=== PATIENT | female | born 1985 | race African-American/Black ===

== ENCOUNTER 2024-07-17 09:10 | Emergency (ER) | payer OTHER, SELFPAY ==
--- NOTE | ~2024-07-17 | CT_ITS ---
EXAMINATION: CTA chest PE protocol DATE: 07/17/2024 13:18 INDICATION: Left chest pain. TECHNIQUE: Computed tomography angiography (CTA) of the chest was performed with 100 mL Omnipaque-350 intravenous contrast timed to evaluate the pulmonary arteries. Coronal maximum intensity projection 3D-reconstructions were created by the technologist. Automated exposure control and iterative reconst ruction technique were employed. The dose-length product was 393.15 mGy-cm. COMPARISON: Chest CT 06/21/2007 FINDINGS: There is no pneumonia or pleural effusion. The heart size is normal. No pericardial effusio n. There is no pulmonary embolus. There is mild thoracic spondylosis. IMPRESSION: 1. No pulmonary embolus. Reviewed, dictated and finalized at location A. ANET SPECIALIST IMPRESSION: 1. No pulmonary embolus.
--- NOTE | ~2024-07-17 | XR_ITS ---
EXAMINATION: XR chest 2V DATE: 07/17/2024 10:19 INDICATION: Chest pain. TECHNIQUE: Frontal and lateral views of the chest were obtained. COMPARISON: Chest 2 views 02/20/2012 FINDINGS: There is no pneumonia, pleural effusion, or pneumothorax. The heart size is normal. IMPRESSION: 1. No acute cardiopulmonary disease. Reviewed, dictated and finalized at location A. IPLE KNIFE EDGE TRIMMER OPERATOR
--- NOTE | 2024-07-17 09:13 | ECG_ITS ---
Test Date: 2024-07-17 09:15:58 Measurements Intervals [place] Rate: 63 P: 35 [place]: 99 QRS: 69 QRSD: 97 T: 49 QT: 405 QTc: 417 Interpretive Statements SINUS RHYTHM WITH SHORT [place] INTERVAL BASELINE ARTIFACT- I, II, III, AVR, AVL, AVF, V1, V5-V6 BORDERLINE ECG No previous ECG available for comparison Electronically Signed On 07-17-2024 09:44:05 SOFT WORK WRAPPER LAYER AND EXAMINER by Vivek Saavedra D.O.
[2024-07-17 09:17] VITALS: PULSE 90; RESP 14; TEMP 36.5; O2SAT 98
[2024-07-17 09:32] LABS: Basophils Percent Auto 0.6 % (0.2-1.2); Eosinophils Percent Auto 0.8 % (0-4.4); Hemoglobin 12.4 g/dL (12.0-15.0); Immature Granulocyte Absolute 0.01 K/mm3 (0.00-0.031); Immature Granulocyte Percent A 0.3 % (0-0.5); Lymphocytes Absolute Auto 1.45 K/mm3 (0.9-3.2); Lymphocytes Percent Auto 40.6 % (18.3-44.2); Mean Corpuscular HGB Conc 32.6 g/dl (32-36); Mean Corpuscular Hemoglobin 30.3 pg (26-34); Mean Corpuscular Volume 92.9 fl (80-100); Mean Platelet Volume 11.1 fl (7.4-10.4); Monocytes Absolute Auto 0.2 K/mm3 (0.1-0.6); Monocytes Percent Auto 6.4 % (2.6-8.5); Neutrophils Absolute Auto 1.8 K/mm3 (1.3-6.7); Neutrophils Percent Auto 51.3 % (45.5-73.1); Platelet Count Result 193 k/mm3 (150-375); Red Blood Count 4.09 M/mm3 (4.2-5.4); White Blood Count 3.6 K/mm3 (4.5-10.0)
--- OUTSIDE RECORDS SUMMARY | 2024-07-17 09:35 | XMS_ITS | Clinical Summary ---
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 Surgical History Surgery Date Site/Laterality Comments EYE SURGERY REDUCTION MAMMAPLASTY TONSILLECTOMY TUBAL LIGATION 06/10/2013 - 06/09/2014 Family History Medical History Relation Name Comments Leukemia Father Cervical cancer Maternal Grandmother Endometriosis Mother Breast cancer Neg Hx Ovarian cancer Neg Hx Relation Name Status Comments Father Maternal Grandmother Alive Mother Alive Social History Tobacco Use Types Packs/Day Years Used Date Smoking Tobacco: Never Smokeless Tobacco: Never Alcohol Use Standard Drinks/Week Comments Yes 0 (1 standard drink = 0.6 oz pur e alcohol) socially Personal Safety Answer Date Recorded Getting School Help Needed Not on file 08/23 Comments No Sex and Gender Information Value Date Recorded Sex Assigned at Not on file Legal Sex Female 8:10 AM OPHTHALMIC PATHOLOGIST Gender Identity Not on file Sexual Orientation Not on file Obstetrics History Last Filed Vital Signs Vital Sign Reading Time Taken Comments Blood Pressure 127/89 10/27/2019 2:30 PM CDT Pulse 57 10/27/2019 2:30 PM CDT Temperature 36.7 C (98 F) 10/27/2019 2:30 PM CDT Respiratory Rate - - Oxygen Saturation 97% 10/27/2019 2:30 PM CDT Inhaled Oxygen Concentration - - Weight 88.5 kg (195 lb) 11/11/2019 10:30 AM CDT Height 175.3 cm (5' 9 ) 10/27/2019 2:30 PM CDT Body Mass Index 28.8 10/27/2019 2:30 PM CDT Plan of Treatment Not on file Insurance [employer] [facility] Care Teams Hydraulic Boom Operator Relationship Specialty Start Date End Date Joshua Iqbal MD [address] [place] [address] PCP - General Family Practice 08/19/19
--- OUTSIDE RECORDS SUMMARY | 2024-07-17 09:35 | XMS_ITS | Clinical Summary ---
Author Organization [facility] Address [address] [place] [address] Care Team Providers Care Mill Work Name Role Phone Unavailable Primary Care Provider Unavailabl e Source Comments [facility],non-owned Affiliates and Associated Physician Practices is amultiple site organization consisting of ambulatory clinics and hospital sitesin [place], [place], [place] and [place]. This disclosure is being madepursuant to the Care Everywhere program and may not contain all information available regarding this patient. Last updated 18.[facility] Social History Tobacco Use Types Packs/Day Years Used Date Smoking Tobacco: Never Assessed Sex and Gender Information Value Date Recorded Sex Assigned at Not on file Gender Identity Not on file Sexual Orientation Not on file Plan of Treatment Health Maintenance Due Date Last Done Comments PAP SMEAR 1985 HIV SCREENING 2000 HEPATITIS C SCREENING 05/06/2003 DTAP/TDAP/TD VACCINES (1 - Tdap) 2004 HEPATITIS B VACCINE (1 of 3 - 19+ 3-dose series) 2004 COVID-19 VACCINE ( - 2023-2 5 season) 2024 INFLUENZA VACCINE (#1) 2024 DEPRESSION SCREENING 06/10/2024 ZOSTER VACCINE (1 of 2) 2035 HIB VACCINE Aged Out No longer eligi ble based on patient's age to complete this topic HPV VACCINE Aged Out No longer eligi ble based on patient's age to complete this topic MENINGOCOCCAL (Group B) VACCINE Aged Out No longer eligible based on patient's age to complete this topic MENINGOCOCCAL VACCINE Aged Out No jossy michael eligible based on patient's age to complete this topic PNEUMOCOCCAL VACCINE Aged Out No long er eligible based on patient's age to complete this topic
--- OUTSIDE RECORDS SUMMARY | 2024-07-17 09:35 | XMS_ITS | Clinical Summary ---
Author Organization [facility] Address [address] [place] [address] Phone Care Team Providers Care Medical Esthetician Name Role Phone Unavailable Primary Care Provider Unavailabl e Allergies No known active allergies Medications buPROPion (WELLBUTRIN) 75 mg tablet Take 1 Tablet by mouth daily. 04/21/2024 Active tranexamic acid (LYSTEDA) 650 mg Tablet tabletIndicatio ns:Menorrhagia with regular cycle Take 2 Tablets (1,300 mg) by mouth 3 times daily. 30 Tablet 2 07/03/2024 Active Active Problems No known active problems Encounters Date Type Department Care Team Description 07/03/2024 2:30 PM STONEWORK SUPERVISOR Office Visit [facility]ING[facility] [address] [place] [id number] Meng Tran, Menorrhagia with regular cycle (Primary Dx); Intramural leiomyoma of uterus 07/03/2024 10:30 AM STONEWORK SUPERVISOR Ancillary Procedure [facility] SINGER SONGWRITER - [address] [address] Menorrhagia with regular cycle 07/02/2024 External Device Data STL ABSTRACTION Provider, Abstract 07/01/2024 External Device Data STL ABSTRACTION Provider, Abstract 06/30/2024 External Device Data STL ABSTRACTION Provider, Abstract 06/24/2024 External Device Data STL ABSTRACTION Provider, Abstract 06/23/2024 External Device Data STL ABSTRACTION Provider, Abstract 06/18/2024 1:30 PM STONEWORK SUPERVISOR Office Visit [facility] [address] [place] [address] Meng Tran DO Well woman exam with routine gynecological exam (Primary Dx); Screening for STDs (sexually transmitted diseases); Menorrhagia with regular cycle 06/18/2024 Telephone [facility] SINGER SONGWRITER - [address] [address] Meng Tran DO Appointment Notification from Last 3 Months Family History Medical History Relation Name Comments Colon Cancer Maternal Grandmother Endometrial Cancer Maternal Grandmother Relation Name Status Comments Maternal Grandmother Social History Tobacco Use Types Packs/Day Years Used Date Smoking Tobacco: Never Smokeless Tobacco: Never Alcohol Use Standard Drinks/Week Comments Yes 1 (1 standard drink = 0.6 oz pur e alcohol) Comments No Sex and Gender Information Value Date Recorded Sex Assigned at Not on file Legal Sex Female 3:02 PM CDT Gender Identity Not on file Sexual Orientation Not on file Last Filed Vital Signs Vital Sign Reading Time Taken Comments Blood Pressure 106/72 07/03/2024 10:42 AM STONEWORK SUPERVISOR Pulse 67 08/04/2021 8:00 AM STONEWORK SUPERVISOR Temperature 36.7 C (98 F) 08/04/2021 8:00 AM STONEWORK SUPERVISOR Respiratory Rate 15 07/03/2024 10:42 AM STONEWORK SUPERVISOR Oxygen Saturation 99% 07/03/2024 10:42 AM STONEWORK SUPERVISOR Inhaled Oxygen Concentration - - Weight 88 kg (194 lb) 07/03/2024 10:42 AM STONEWORK SUPERVISOR Height 175.3 cm (5' 9 ) 07/03/2024 10:42 AM STONEWORK SUPERVISOR Body Mass Index 28.65 07/03/2024 10:42 AM STONEWORK SUPERVISOR Plan of Treatment Upcoming Encounters Date Type Department Care Team (Late st Contact Info) Description 06/24/2025 1:30 PM STONEWORK SUPERVISOR Office Visit [facility] [address] [place] [address] Meng Tran DO [address] [place] [address] Health Maintenance Due Date Last Done Comments Pre-Diabetes and Diabetes Screening 1985 DTAP/TDAP/TD VACCINES (1 - Tdap) 2004 HEPATITIS B VACCINES (1 of 3 - 19+ 3-dose series) 2004 INFLUENZA VACCINE (#1) 2024 CERVICAL CANCER SCREENING 06/18/2027 06/18/2024 HPV VACCINES Aged Out No longer eligi ble based on patient's age to complete this topic Medical Devices Implanted Type Area Onsite Case Manager Device Identifier Shelf Expiration Date Model / Serial / Lot Field Software Engineer Clip Surgiclip Lb 13in [id number] - [id number] Implanted:Qty : 4 on 08/03/2021 by Alena Benjamin MD at [facility] N/A: Abdomen [employer] - COVIDIEN [id number] 04/09/2026 [id number] / / [id number] Procedures Procedure Name Priority Date/Time Associated Diagnosis Comments HIV DETECTION W/REFLX CONFIRMATION Routine 06/18/2024 2:44 PM STONEWORK SUPERVISOR Well woman exam with routine gynecological exam Screening for STDs (sexually transmitted diseases) RPR Routine 06/18/2024 2:44 PM STONEWORK SUPERVISOR Well woman exam with routine gynecological exam Screening for STDs (sexually transmitted diseases) CERV/VAG CYTO AGE BASED SCREEN PAP W CT/NG, TRICH Routine 06/18/2024 2:44 PM STONEWORK SUPERVISOR Well woman exam with routine gynecological exam from Last 3 Months Results * CERV/VAG CYTO AGE BASED SCREEN PAP W CT/NG, TRICH (06/18/2024 2:44 PM STONEWORK SUPERVISOR) COMMENT (PAP): [facility] [place] Comment: This order for age-based cervical cancer and STI screening follows ACOG guidelines(PB 168, 140, QJI592). See individual assays for performing site location. CLINICAL INFORMATION [facility] [place] Comment:SCREENING LAST MENSTRUAL PERIOD [facility] [place] Comment:06/02/2024 PREV PAP: [facility] [place] Comment:NONE GIVEN PREV BX: [facility] [place] Comment:NONE GIVEN SOURCE [facility] [place] Comment:Endocervix ADEQUACY: [facility] [place] Comment: Satisfactory for evaluation. Endocervical/transformation zone component present. PAP INTERP [facility] [place] Comment: Cytology Results: Negative for intraepithelial lesion or malignancy. CYTOLOGY INFECTION [facility] [place] Comment: Fungal organisms morphologically consistent with Tracey spp. COMMENT (PAP TEST) [facility] [place] Comment: This Pap test has been evaluated with computer assisted technology. GUEST SERVICES OFFICER: [facility] [place] Comment: TANIA, CT(ASCP) CT screening location: [place] [address] [place] [address] EXPLANATORY NOTE Que [facility] [place] Comment: EXPLANATORY NOTE: The Pap is a screening test for cervical cancer. It is not a diagnostic test and is subject to false negative and false positive results. It is most reliable when a satisfactory sample, regularly obtained, is submitted with relevant clinical findings and history, and when the Pap result is evaluated along with historic and current clinical information. HPV E6/E7 Not Detected Not Detected [facility] [place] Comment: Methodology: Dental Assistant Medical Assistant-Mediated Amplification This assay detects E6/E7 viral messenger RNA (mRNA) from 14 high-risk HPV types (16,18,31,33,35,39,45,51,52,56,58,59,66,68). Cervical sources are required for HPV testing. If a vaginal source from a patient who has had a total hysterectomy with removal of cervix was submitted, please contact the testing laboratory for alternative testing options. For additional information, please refer to http://[employer].PrecisionHawk/faq/KVJ058i5 (This link if provided for information/ educational purposes only.) CHLAMYDIA TRACHOMATIS RNA, TMA, UROGENITAL NOT DETECTED NOT DETECTED [facility] [place] NEISSERIA GONORRHOEAE RNA, TMA, UROGENITAL NOT DETECTED NOT DETECTED [facility] [place] COMMENT INFECTIOUS DISEASE [facility] [place] Comment: The analytical performance characteristics of this assay, when used to test SurePath(TM) specimens have been determined by [facility]. The modifications have not been cleared or approved by the FDA. This assay has been validated pursuant to the CLIA regulations and is used for clinical purposes. For additional information, please refer to https://[employer].PrecisionHawk/faq/TFE297 (This link is being provided for information/ educational purposes only.) TRICHOMONAS VAGINALIS,QUALITAT DELGADO,PAP VIAL NOT DETECTED NOT DETECTED [facility] [place] Comment: The analytical performance characteristics of this assay have been determined by [facility]. The modifications have not been cleared or approved by the FDA. This assay has been validated pursuant to the CLIA regulations and is used for clinical purposes. For additional information, please refer to http://education.PrecisionHawk/ faq/Trichomonastma (This link is being provided for information/ educational purposes only.) Test Performed at: [facility] [address] [place] [address] Gayatri CASTANO Genital SWAB OF ENDOCERVIX / Unknown 06/18/2024 2:44 PM STONEWORK SUPERVISOR 06/19/2024 3:26 AM STONEWORK SUPERVISOR Meng Tran DO PATHOLOGY/CYTOLOGY ORD ERABLES Final Result [facility] [phone] [facility] [address] * HIV DETECTION W/REFLX CONFIRMATION (06/18/2024 2:44 PM STONEWORK SUPERVISOR) HIV-1/2 AG AND AB SCREEN NON-REACT DELGADO NON-REACT DELGADO [facility] [place] Comment: HIV-1 antigen and HIV-1/HIV-2 antibodies were not detected. There is no laboratory evidence of HIV infection. PLEASE NOTE: This information has been disclosed to you from records whose confidentiality may be protected by state law. If your state requires such protection, then the state law prohibits you from making any further disclosure of the information without the specific written consent of the person to whom it pertains, or as otherwise permitted by law. A general authorization for the release of medical or other information is NOT sufficient for this purpose. For additional information please refer to http://education.PrecisionHawk/faq/PSL534 (This link is being provided for informational/ educational purposes only.) The performance of this assay has not been clinically validated in patients less than 2 years old. Test Performed at: [facility] [address] [place] [address] Gayatri Weller MD Blood 06/18/2024 2:44 PM STONEWORK SUPERVISOR 06/19/2024 7:41 AM STONEWORK SUPERVISOR Meng Tran DO CHEMISTRY ORDERABLES F inal Result Performing Organization Address [facility] Co de Phone Number [facility] [phone] [facility] [address] * RPR (06/18/2024 2:44 PM STONEWORK SUPERVISOR) RPR NON-REACTI VE NON-REACTI VE [facility] Comment: No laboratory evidence of syphilis. If recent exposure is suspected, submit a new sample in 2-4 weeks. Test Performed at: [facility] [address] Gayatri Weller MD Blood 06/18/2024 2:44 PM STONEWORK SUPERVISOR 06/19/2024 7:41 AM STONEWORK SUPERVISOR Meng Gallegoty DO CHEMISTRY ORDERABLES F inal Result Performing Organization Address [facility] de Phone Number [facility] [phone] [facility] [address] from Last 3 Months Insurance [employer] [place] [facility] [place]ENA [place]ER [id number] Advance Directives For more information, please contact: [phone] * Full Code (Latest Code Status on File) Date Activated Date Inactivated Comments 08/03/2021 2:30 PM 08/04/2021 1:01 PM
--- OUTSIDE RECORDS SUMMARY | 2024-07-17 09:35 | XMS_ITS | Patient Health Summary ---
Author Organization [facility] Address [address] [facility] [place] [address] Care Team Providers Care Engineering Mechanic Name Role Phone Unavailable Primary Care Provider Unavailabl e Note from [facility],non-owned Affiliates and Associated Physician Practices is amultiple site organization consisting of ambulatory clinics and hospital sitesin [place], [place], [place] and [place]. This disclosure is being madepursuant to the Care Everywhere program and may not contain all information available regarding this patient. Last updated 18.[facility] [email or web address] Social History Tobacco Use Types Packs/Day Years Used Date Smoking Tobacco: Never Assessed Sex and Gender Information Value Date Recorded Sex Assigned at Not on file Gender Identity Not on file Sexual Orientation Not on file Procedures * LUNG MATURITY(Performed 06/23/2010) * LS RATIO AMNIOTIC FLUID(Performed 06/23/2010) Results * LS RATIO FLUID (06/23/2010 7:45 AM CUT OUT AND MARKING MACHINE OPERATOR) L/S Ratio 3.0 SEE BELOW [facility] Comment: Immature <=1.5 Transitional 1.6-1.9 Mature >=2.0 Color Fluid Pale Yellow [facility] Character Amnio turbid [facility] Gestational Age 37w4d [facility] Volume Amnio 9.0 ml [facility] Interpretation L/S Ratio [facility] Comment: PLEASE NOTE - L/S Ratio correlates with gestational age only in normal pregnancies. Abnormalities of , such as Retroplacental Bleeding and Ruptured Membranes, Hypertensive Renal or Cardiovascular Disease, Class D, E, and F Diabetes, and Maternal Hypertension can accelerate L/S Ratio maturation. Conversely, delayed maturation of L/S Ratio can be caused by Erythroblastosis Fetalis, Diabetes Mellitus (Class A, B, or C), and Chronic Nonhypertensive Glomerulonephritis. AMNIOTIC FLUID SPECIMEN / Unknown 06/23/2010 7:45 AM CUT OUT AND MARKING MACHINE OPERATOR 06/23/2010 10:18 AM CUT OUT AND MARKING MACHINE OPERATOR Narrative [facility] - 06/23/2010 2:28 PM CUT OUT AND MARKING MACHINE OPERATOR tt Airam Caba MD LAB - BODY FLUID ORD ERABLES Performing Organization Address [facility] de Phone Number [facility] [address] [place] [phone] * LUNG MATURITY (06/23/2010 7:45 AM CUT OUT AND MARKING MACHINE OPERATOR) FLM 35.63 SEE BELOW mg/g [facility] Comment: See Interpretation for Normals Color Fluid Pale Yellow [facility] Character Amnio turbid [facility] Gestational Age 37w4d [facility] Volume Amnio 9.0 ml [facility] Interpretation [facility] Comment: FLM Immature ......... <= 39 mg/g Mature ......... >= 55 mg/g Results between 40 and 54 cannot be declared mature or immature and should be evaluated with caution. AMNIOTIC FLUID SPECIMEN / Unknown 06/23/2010 7:45 AM CUT OUT AND MARKING MACHINE OPERATOR 06/23/2010 10:18 AM CUT OUT AND MARKING MACHINE OPERATOR Narrative [facility] - 06/23/2010 2:27 PM CUT OUT AND MARKING MACHINE OPERATOR tt Airam Caba MD LAB - BODY FLUID ORD ERABLES Performing Organization Address [facility] Co de Phone Number [facility] [address] [place] [phone]
--- OUTSIDE RECORDS SUMMARY | 2024-07-17 09:35 | XMS_ITS | Referral Summary ---
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
--- OUTSIDE RECORDS SUMMARY | 2024-07-17 09:35 | XMS_ITS | Referral Summary ---
Author Organization [facility] Address [address] [facility] [place] [address] Care Team Providers Care Java Engineer Name Role Phone Unavailable Primary Care Provider Unavailabl e Source Comments [facility],non-owned Affiliates and Associated Physician Practices is amultiple site organization consisting of ambulatory clinics and hospital sitesin [place], [place]. This disclosure is being madepursuant to the Care Everywhere program and may not contain all information available regarding this patient. Last updated 18.[facility] Social History Tobacco Use Types Packs/Day Years Used Date Smoking Tobacco: Never Assessed Sex and Gender Information Value Date Recorded Sex Assigned at Not on file Gender Identity Not on file Sexual Orientation Not on file Plan of Treatment Not on file
--- OUTSIDE RECORDS SUMMARY | 2024-07-17 09:35 | XMS_ITS | Clinical Summary ---
Author Organization [facility] Care Team Providers Care Cement [employer] [address] Name Role Phone Unavailable Primary Care Provider Unavailabl e Social History Tobacco Use Types Packs/Day Years Used Date Smoking Tobacco: Never Assessed Comments Unknown Sex and Gender Information Value Date Recorded Sex Assigned at Not on file Legal Sex Female 4:03 PM CDT Gender Identity Not on file Sexual Orientation Not on file Plan of Treatment Health Maintenance Due Date Last Done Comments Hepatitis C Virus (HCV) Screening 1985 TdaP Immunization 1985 Hepatitis B Immunization (1 of 3 - 19+ 3-dose series) 2004 Pap Smear 2006 Cervical Cancer Screening (CCS) 2015 HPV/Cotest 2015 Influenza Immunization (#1) 2024 SARS-COV-2 Immunization ( season) 2024 09/29/2020, 09/08/2020 Respiratory Syncytial Virus (RSV) Immunization (Adult) (1 - 1-dose 75+ series) 2060 Meningococcal Immunization (ACWY) Aged Out No longer eligible b ased on patient's age to complete this topic Pneumococcal Immunization Combined Aged Out No longer eligible b ased on patient's age to complete this topic Rotavirus Immunization Aged Out No lo nger eligible based on patient's age to complete this topic
[2024-07-17 09:44] LABS: Alanine Aminotransferase 17 U/L (6-35); Albumin Level 4.3 g/dL (3.5-5.1); Alkaline Phosphatase 58 U/L (38-126); Anion Gap 11 mmol/L (4-12); Aspartate Amino Transferase 25 U/L (14-36); Bilirubin,Total 0.4 mg/dL (0.2-1.3); Blood Urea Nitrogen 10 mg/dL (7-17); Calcium 8.9 mg/dL (8.4-10.2); Carbon Dioxide 21 mmol/L (22-30); Chloride 106 mmol/L (98-107); Estimated CRCL calculation 113 ml/min; Estimated Glomerular Filt Rate > 60; Glucose 78 mg/dL (65-110); Lipase 97 U/L (23-300); Sodium 138 mmol/L (137-145)
[2024-07-17 09:56] LABS: Troponin I < 0.012 ng/mL (0.000-0.034)
[2024-07-17 10:21] LABS: Prothrombin Time 13.9 Seconds (11.1-14.7)
[2024-07-17 10:22] LABS: Partial Thromboplastin Time 29.5 Seconds (22.3-36.8)
--- NOTE | 2024-07-17 11:46 | ED.GENADULT ---
HPI - General Adult General Chief complaint: Chest Pain Stated complaint: chest pain Time Seen by Provider: 07/17/24 11:05 History of Present Illness HPI narrative: 39-year-old female presenting to the emergency department for evaluation for left-sided chest pain. Patient denies any recent upper respiratory illness with states her children do have some signs of infection. Patient began having some left-sided chest pain that is worsened with deep inspiration. States the pain has been constant since last night but is worsened with deep breathing movement and cough. Patient is on control. Related Data Home Medications ?Medication ?Instructions ?Recorded ?Confirmed ?Last Taken ?Type multivitamin 1 tablet PO DAILY 05/30/20 04/21/24 Unknown History Allergies Allergy/AdvReac Type Severity Reaction Status Date / Time No Known Allergies Allergy Unknown Verified 07/17/24 12:15 Review of Systems Review of Systems: All systems reviewed & are unremarkable except as noted in HPI and below PMFSH Past Medical History Medical History Depression Detached retina, bilateral Glaucoma Vision loss, bilateral Surgical History Surgical History History of endometrial ablation History of removal of eye Right Family History Family History Grandparent Diabetes mellitus Family history of lung cancer Father Family history of malignant neoplasm Social History Social History Smoking status: Never smoker Alcohol intake: current Substance use: never Substance use type: does not use Lack of Transportation: No Lack of Food: Never True Current Housing: I Have Housing Concerned About Future Housing: No Difficulty Paying Gas/Electric Bills: YES Difficulty Paying for Meds: No Currently Unemployed: No Education: Bachelor's Degree Difficulty w/ Childcare or Family Care: No Living arrangements: with family Occupation/Education: unemployed Additional occupation/education comments: Disabled Gender identity (if verbalized by the patient): Female Sexual Orientation (if Verbalized by the Patient): Straight or Heterosexual Agree to blood products: Yes Exam Narrative: APPEARANCE: Well appearing, no pain, no distress, well-nourished. HEAD: normocephalic, atraumatic. EYES: PERRLA/EOMI, conjunctivae clear. NOSE: Normal no drainage EARS:TMS clear with good light reflex. THROAT: Pharynx clear, no exudate. NECK: Supple. No adenopathy, no masses. RESPIRATORY: Airway patent, respirations nonlabored. Clear to auscultation bilaterally, no rales, rhonchi, wheezing. CARDIOVASCULAR: Regular rate and rhythm without murmurs rubs or gallops. ABDOMINAL: Soft, nontender, nondistended, normal bowel sounds MUSCULOSKELETAL: Left-sided chest wall tenderness to palpation NEURO: Alert. Cranial nerves II through XII intact. Grossly intact SKIN: Warm, dry. Normal Color Course Vital Signs Vital signs: Vital Signs Temperature 97.7 F 07/17/24 09:17 Pulse Rate 90 07/17/24 09:17 Respiratory Rate 14 07/17/24 09:17 Pulse Oximetry 98 07/17/24 09:17 Oxygen Delivery Room Air 07/17/24 09:17 Temperature 97.8 F 07/17/24 14:45 Pulse Rate 62 07/17/24 14:45 Respiratory Rate 14 07/17/24 14:45 Blood Pressure 107/73 07/17/24 14:45 Pulse Oximetry 100 07/17/24 14:45 Oxygen Delivery Room Air 07/17/24 12:10 Medical Decision Making MDM Narrative Medical decision making narrative: 39-year-old female presented emergency department for evaluation for reproducible left-sided chest wall tenderness. Patient is afebrile with no leukocytosis hemoglobin of 12.4. Patient's INR is 1.0. Patient has no acute abnormalities on her CMP. Serial troponins were negative and serial EKGs were negative. Patient was negative influenza RSV and for COVID. CTA was ordered to evaluate for pulmonary embolism and was negative for PE negative for pneumonia. EKG shows normal sinus rhythm and repeat shows sinus bradycardia with no evidence of acute STEMI with no T-wave inversions. Suspect pleurisy as the underlying etiology for the patient's symptoms. Patient was updated on the results of the workup and plan for treatment home. All questions concerns were addressed. Differential Diagnosis Differential Diagnosis: COVID, RSV, influenza, pneumonia, pulmonary embolism, pneumothorax Vital Signs Vital Signs: Vital Signs Temperature 97.7 F 07/17/24 09:17 Pulse Rate 90 07/17/24 09:17 Respiratory Rate 14 07/17/24 09:17 Pulse Oximetry 98 07/17/24 09:17 Oxygen Delivery Room Air 07/17/24 09:17 Temperature 97.8 F 07/17/24 14:45 Pulse Rate 62 07/17/24 14:45 Respiratory Rate 14 07/17/24 14:45 Blood Pressure 107/73 07/17/24 14:45 Pulse Oximetry 100 07/17/24 14:45 Oxygen Delivery Room Air 07/17/24 12:10 Lab Data Lab results reviewed: Yes I reviewed the patient's lab results. 07/17/24 09:26 07/17/24 09:26 Labs: Lab Results 07/17/24 07/17/24 Range/Units 09:26 12:07 WBC 3.6 L (4.5-10.0) K/mm3 RBC 4.09 L (4.2-5.4) M/mm3 Hgb 12.4 (12.0-15.0) g/dL Hct 38.0 (37.0-47.0) % MCV 92.9 (80-100) fl MCH 30.3 (26-34) pg MCHC 32.6 (32-36) g/dl RDW 13.0 (11.5-14.5) % Plt Count 193 (150-375) k/mm3 MPV 11.1 H (7.4-10.4) fl Immature Gran % (Auto) 0.3 (0-0.5) % Neut % (Auto) 51.3 (45.5-73.1) % Lymph % (Auto) 40.6 (18.3-44.2) % [place] % (Auto) 6.4 (2.6-8.5) % Eos % (Auto) 0.8 (0-4.4) % Baso % (Auto) 0.6 (0.2-1.2) % Lymph # (Auto) 1.45 (0.9-3.2) K/mm3 [place] # (Auto) 0.2 (0.1-0.6) K/mm3 Eos # (Auto) 0.0 (0-0.3) K/mm3 Baso # (Auto) 0.0 (0.0-0.1) K/mm3 Abs Immat Gran (auto) 0.01 (0.00-0.031) K/mm3 Absolute Neuts (auto) 1.8 (1.3-6.7) K/mm3 Absolute Nucleated RBC 0.000 (0.0-0.012) K/mm3 Nucleated RBC % 0.0 (0.0-0.2) % PT 13.9 (11.1-14.7) Seconds INR 1.0 APTT 29.5 (22.3-36.8) Seconds Sodium 138 (137-145) mmol/L Potassium 4.0 (3.4-5.0) mmol/L Chloride 106 (98-107) mmol/L Carbon Dioxide 21 L (22-30) mmol/L Anion Gap 11 (4-12) mmol/L BUN 10 (7-17) mg/dL Creatinine 0.67 L (0.7-1.0) mg/dL Estim Creat Clear Calc 113 ml/min Estimated GFR > 60 (59 - ) Glucose 78 (65-110) mg/dL Calcium 8.9 (8.4-10.2) mg/dL Total Bilirubin 0.4 (0.2-1.3) mg/dL AST 25 (14-36) U/L ALT 17 (6-35) U/L Alkaline Phosphatase 58 (38-126) U/L Troponin I < 0.012 < 0.012 (0.000-0.034) ng/mL Total Protein 7.0 (6.3-8.2) g/dL Albumin 4.3 (3.5-5.1) g/dL Lipase 97 (23-300) U/L Influenza A (RT-PCR) Negative (Negative) Influenza B (RT-PCR) Negative (Negative) RSV (RT-PCR) Negative (Negative) SARS-CoV-2 RNA (RT-PCR) Negative (Negative) Imaging Data Radiologist's impression: Impressions Chest X-Ray 07/17/24 10:44 IMPRESSION: 1. No acute cardiopulmonary disease. Chest CTA 07/17/24 13:22 IMPRESSION: 1. No pulmonary embolus. Discharge Plan Discharge Clinical Impression: Left-sided chest pain Patient Disposition: Home, Self-Care Condition: Stable Instructions: Antibiotic Form, Pleurisy (ED), Chest Wall Pain (ED) Additional Instructions: Ibuprofen as directed for left-sided chest wall pain. Have close follow-up with your primary care physician for additional outpatient cardiac testing. If you have any worsening symptoms then please call or return to the emergency department. Patient Language: Hungarian Prescriptions: No Action bupropion HCl 75 mg tablet 75 mg PO DAILY Qty: 90 0RF Rx Instructions: administer 6 hours apart multivitamin Tablet 1 tablet PO DAILY Follow-up/Referrals: Sayra Moya, [facility]ER [Primary Care Provider] -
--- NOTE | 2024-07-17 11:57 | ECG_ITS ---
Test Date: 2024-07-17 12:04:06 Measurements Intervals [place] Rate: 57 P: 24 NE: 126 QRS: 56 QRSD: 101 T: 31 QT: 422 QTc: 411 Interpretive Statements SINUS BRADYCARDIA BORDERLINE ECG Compared to ECG 07/17/2024 09:15:58 HEART RATE HAS DECREASED Electronically Signed On 07-17-2024 12:50:07 MANUAL ARTS THERAPY TEACHER by Vivek Saavedra D.O.
--- OUTSIDE RECORDS SUMMARY | 2024-07-17 12:08 | XMS_ITS | Clinical Summary ---
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
--- OUTSIDE RECORDS SUMMARY | 2024-07-17 12:08 | XMS_ITS | Referral Summary ---
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
--- OUTSIDE RECORDS SUMMARY | 2024-07-17 12:08 | XMS_ITS | Clinical Summary ---
Author Organization [facility] Address [address] [place] [address] Care Team Providers Care Remote Encoding Operations Supervisor Name Role Phone Unavailable Primary Care Provider Unavailabl e Source Comments [facility],non-owned Affiliates and Associated Physician Practices is amultiple site organization consisting of ambulatory clinics and hospital sitesin [place], [place], [place] and [place]. This disclosure is being madepursuant to the Care Everywhere program and may not contain all information available regarding this patient. Last updated 18.[facility] Social History Tobacco Use Types Packs/Day Years [...]
--- OUTSIDE RECORDS SUMMARY | 2024-07-17 12:08 | XMS_ITS | Clinical Summary ---
Author Organization [facility] Address [address] [place] [address] Phone Care Team Providers Care Management Professor Name Role Phone Unavailable Primary Care Provider [...] Department Care Team Description 07/03/2024 2:30 PM VICE PRESIDENT QUALITY Office Visit [facility] [address] [place] [address] Meng Tran, Menorrhagia with regular cycle (Primary Dx); Intramural leiomyoma of uterus 07/03/2024 10:30 AM VICE PRESIDENT QUALITY Ancillary Procedure [facility] [address] [address] Menorrhagia with regular cycle 07/02/2024 External Device Data STL ABSTRACTION Provider, Abstract 07/01/2024 External Device Data STL ABSTRACTION Provider, Abstract 06/30/2024 External Device Data STL ABSTRACTION Provider, Abstract 06/24/2024 External Device Data STL ABSTRACTION Provider, Abstract 06/23/2024 External Device Data STL ABSTRACTION Provider, Abstract 06/18/2024 1:30 PM VICE PRESIDENT QUALITY Office Visit [facility] [address] [place] [address] Meng Tran DO Well woman exam with routine gynecological exam (Primary Dx); Screening for STDs (sexually transmitted diseases); Menorrhagia with regular cycle 06/18/2024 Telephone [facility] [address] [place] [address] Meng Tran DO Appointment Notification [...] Comments Blood Pressure 106/72 07/03/2024 10:42 AM VICE PRESIDENT QUALITY Pulse 67 08/04/2021 8:00 AM VICE PRESIDENT QUALITY Temperature 36.7 C (98 F) 08/04/2021 8:00 AM VICE PRESIDENT QUALITY Respiratory Rate 15 07/03/2024 10:42 AM VICE PRESIDENT QUALITY Oxygen Saturation 99% 07/03/2024 10:42 AM VICE PRESIDENT QUALITY Inhaled Oxygen Concentration - - Weight 88 kg (194 lb) 07/03/2024 10:42 AM VICE PRESIDENT QUALITY Height 175.3 cm (5' 9 ) 07/03/2024 10:42 AM VICE PRESIDENT QUALITY Body Mass Index 28.65 07/03/2024 10:42 AM VICE PRESIDENT QUALITY Plan of Treatment Upcoming Encounters Date Type Department Care Team (Late st Contact Info) Description 06/24/2025 1:30 PM VICE PRESIDENT QUALITY Office Visit [facility] [address] [place] [address] Meng Tran DO [address] [place] [address] Health Maintenance Due Date Last Done Comments Pre-Diabetes and Diabetes Screening 1985 DTAP/TDAP/TD VACCINES (1 - Tdap) 2004 HEPATITIS B VACCINES (1 of 3 - 19+ 3-dose series) 2004 INFLUENZA VACCINE (#1) 2024 CERVICAL CANCER SCREENING 06/18/2027 06/18/2024 HPV VACCINES Aged Out No longer eligi ble based on patient's age to complete this topic Medical Devices Implanted Type Area Administrative Fellow Device Identifier Shelf Expiration Date Model / Serial / Lot Banking Representative Clip Surgiclip Lb 13in [id number] - [id number] Implanted:Qty : 4 on 08/03/2021 by Alena Benjamin MD at [facility] N/A: Abdomen [employer] - COVIDIEN [id number] 04/09/2026 [id number] / / [id number] Procedures Procedure Name Priority Date/Time Associated Diagnosis Comments HIV DETECTION W/REFLX CONFIRMATION Routine 06/18/2024 2:44 PM VICE PRESIDENT QUALITY Well woman exam with routine gynecological exam Screening for STDs (sexually transmitted diseases) RPR Routine 06/18/2024 2:44 PM VICE PRESIDENT QUALITY Well woman exam with routine gynecological exam Screening for STDs (sexually transmitted diseases) CERV/VAG CYTO AGE BASED SCREEN PAP W CT/NG, TRICH Routine 06/18/2024 2:44 PM VICE PRESIDENT QUALITY Well woman exam with routine gynecological exam from Last 3 Months Results * CERV/VAG CYTO AGE BASED SCREEN PAP W CT/NG, TRICH (06/18/2024 2:44 PM VICE PRESIDENT QUALITY) COMMENT (PAP): [facility] [place] Comment: This order for age-based cervical cancer and STI screening follows ACOG guidelines(PB 168, 140, IWT578). See individual assays for performing site location. CLINICAL INFORMATION [facility] [place] Comment:SCREENING LAST MENSTRUAL PERIOD [facility] [place] Comment:06/02/2024 PREV PAP: [facility] [place] Comment:NONE GIVEN PREV BX: [facility] [place] Comment:NONE GIVEN SOURCE [facility] [place] Comment:Endocervix ADEQUACY: [facility] [place] Comment: Satisfactory for evaluation. Endocervical/transformation zone component present. PAP INTERP [facility]- [place] Comment: Cytology Results: Negative for intraepithelial lesion or malignancy. CYTOLOGY INFECTION [facility] [place] Comment: Fungal organisms morphologically consistent with Tracey spp. COMMENT (PAP TEST) [facility] [place] Comment: This Pap test has been evaluated with computer assisted technology. MEDICARE CONTACT SPECIALIST: Keturah [facility]- [place] Comment: TANIA, CT(ASCP) CT screening location: [place] [address] [place] [address] EXPLANATORY NOTE [facility]- [place] Comment: EXPLANATORY NOTE: The Pap is a [...] information. HPV E6/E7 Not Detected Not Detected [facility]- [place] Comment: Methodology: Insurance Claims Supervisor-Mediated Amplification This assay detects E6/E7 viral messenger RNA (mRNA) from 14 high-risk HPV types (16,18,31,33,35,39,45,51,52,56,58,59,66,68). Cervical sources are required for HPV testing. If a vaginal source from a patient who has had a total hysterectomy with removal of cervix was submitted, please contact the testing laboratory for alternative testing options. For additional information, please refer to http://BuzzFeed.Macaw/faq/HER440q9 (This link if provided for information/ educational purposes only.) CHLAMYDIA TRACHOMATIS RNA, TMA, UROGENITAL NOT DETECTED NOT DETECTED [facility] [place] NEISSERIA GONORRHOEAE RNA, TMA, UROGENITAL NOT DETECTED NOT DETECTED [facility] [place] COMMENT INFECTIOUS DISEASE [facility] [place] Comment: The analytical performance characteristics of this assay, when used to test SurePath(TM) specimens have been determined by [facility]. The modifications have not been cleared or approved by the FDA. This assay has been validated pursuant to the CLIA regulations and is used for clinical purposes. For additional information, please refer to https://BuzzFeed.Macaw/faq/ORC457 (This link is being provided for information/ educational purposes only.) TRICHOMONAS VAGINALIS,QUALITAT DELGADO,PAP VIAL NOT DETECTED NOT DETECTED [facility] [place] Comment: The analytical performance characteristics of this assay have been determined by [facility]. The modifications have not been cleared or approved by the FDA. This assay has been validated pursuant to the CLIA regulations and is used for clinical purposes. For additional information, please refer to http://education.Macaw/ faq/Trichomonastma (This link is being provided for information/ educational purposes only.) Test Performed at: [email or web address] [address] [place] [address] Gayatri CASTANO Genital SWAB OF ENDOCERVIX / Unknown 06/18/2024 2:44 PM VICE PRESIDENT QUALITY 06/19/2024 3:26 AM VICE PRESIDENT QUALITY Meng Tran DO PATHOLOGY/CYTOLOGY ORD ERABLES Final Result [facility] [phone] [address] * HIV DETECTION W/REFLX CONFIRMATION (06/18/2024 2:44 PM VICE PRESIDENT QUALITY) HIV-1/2 AG AND AB SCREEN NON-REACT DELGADO NON-REACT DELGADO [facility] [place] Comment: HIV-1 antigen and HIV-1/HIV-2 antibodies were [...] purpose. For additional information please refer to http://education.Macaw/faq/QBE417 (This link is being provided for informational/ educational purposes only.) The performance of this assay has not been clinically validated in patients less than 2 years old. Test Performed at: [facility] [address] [place] [address] Gayatri Weller MD Blood 06/18/2024 2:44 PM VICE PRESIDENT QUALITY 06/19/2024 7:41 AM VICE PRESIDENT QUALITY Meng Tran DO CHEMISTRY ORDERABLES F inal Result Performing Organization Address [facility] Co de Phone Number [facility] [phone] [address] * RPR (06/18/2024 2:44 PM VICE PRESIDENT QUALITY) RPR NON-REACTI VE NON-REACTI VE [facility] [place] Comment: No laboratory evidence of syphilis. If recent exposure is suspected, submit a new sample in 2-4 weeks. Test Performed at: [email or web address] [address] Gayatri Weller MD Blood 06/18/2024 2:44 PM VICE PRESIDENT QUALITY 06/19/2024 7:41 AM VICE PRESIDENT QUALITY Meng Gallegoty DO CHEMISTRY ORDERABLES F inal Result Performing Organization Address [facility] de Phone Number [facility] [phone] [address] from Last 3 Months Insurance [employer] OR OF [facility] MALENA KISER [id number] Advance Directives For more information, please contact: [phone] * Full Code (Latest Code Status on File) Date Activated Date Inactivated Comments 08/03/2021 2:30 PM 08/04/2021 1:01 PM
--- OUTSIDE RECORDS SUMMARY | 2024-07-17 12:08 | XMS_ITS | Clinical Summary ---
Author Organization [facility] Care Team Providers Care Hospice Superintendent Name Role Phone Unavailable Primary Care Provider [...]
--- OUTSIDE RECORDS SUMMARY | 2024-07-17 12:08 | XMS_ITS | Referral Summary ---
Author Organization [facility] Address [address] [place] [address] Care Team Providers Care Social Science Instructor Name Role Phone Unavailable Primary Care Provider Unavailabl e Source Comments [facility],non-owned Affiliates and Associated Physician Practices is amultiple site organization consisting of ambulatory clinics and hospital sitesin [place], [place], [place] and [place]. This disclosure is being madepursuant to the Care Everywhere program and may not contain all information available regarding this patient. Last updated 18.[facility] [employer] Social History Tobacco Use Types Packs/Day Years Used Date Smoking Tobacco: Never Assessed Sex and Gender Information Value Date Recorded Sex Assigned at Not on file Gender Identity Not on file Sexual Orientation Not on file Plan of Treatment Not on file
--- OUTSIDE RECORDS SUMMARY | 2024-07-17 12:08 | XMS_ITS | Patient Health Summary ---
Author Organization [facility] Address [address] [place] [address] Care Team Providers Care Instructor Flying Name Role Phone Unavailable Primary Care Provider Unavailabl e Note from [facility],non-owned Affiliates and Associated Physician Practices is amultiple site organization consisting of ambulatory clinics and hospital sitesin [place], [place], [place] and [place]. This disclosure is being madepursuant to the Care Everywhere program and may not contain all information available regarding this patient. Last updated 18.[facility] [employer] Social History Tobacco Use Types Packs/Day Years Used Date Smoking Tobacco: Never Assessed Sex and Gender Information Value Date Recorded Sex Assigned at Not on file Gender Identity Not on file Sexual Orientation Not on file Procedures * LUNG MATURITY(Performed 06/23/2010) * LS RATIO AMNIOTIC FLUID(Performed 06/23/2010) Results * LS RATIO FLUID (06/23/2010 7:45 AM GIMP BUTTONHOLE MACHINE OPERATOR) L/S Ratio 3.0 SEE BELOW [facility] Comment: Immature <=1.5 Transitional 1.6-1.9 Mature >=2.0 Color Fluid Pale Yellow [facility] Character Amnio turbid [facility] Gestational Age 37w4d [facility] Volume Amnio 9.0 ml [facility] Interpretation L/S Ratio [facility] Comment: PLEASE NOTE - L/S Ratio [...] FLUID SPECIMEN / Unknown 06/23/2010 7:45 AM GIMP BUTTONHOLE MACHINE OPERATOR 06/23/2010 10:18 AM GIMP BUTTONHOLE MACHINE OPERATOR Narrative [facility] - 06/23/2010 2:28 PM GIMP BUTTONHOLE MACHINE OPERATOR tt Airam Caba MD LAB - BODY FLUID ORD ERABLES Performing Organization Address [facility] de Phone Number [facility] [address] [place] [phone] * LUNG MATURITY (06/23/2010 7:45 AM GIMP BUTTONHOLE MACHINE OPERATOR) FLM 35.63 SEE BELOW mg/g [facility] Comment: See Interpretation for Normals Color Fluid Pale Yellow [facility] Character Amnio turbid [facility] Gestational Age 37w4d [facility] Volume Amnio 9.0 ml [facility] Interpretation [facility] Comment: FLM Immature ......... <= 39 mg/g Mature ......... >= 55 mg/g Results between 40 and 54 cannot be declared mature or immature and should be evaluated with caution. AMNIOTIC FLUID SPECIMEN / Unknown 06/23/2010 7:45 AM GIMP BUTTONHOLE MACHINE OPERATOR 06/23/2010 10:18 AM GIMP BUTTONHOLE MACHINE OPERATOR Narrative [facility] - 06/23/2010 2:27 PM GIMP BUTTONHOLE MACHINE OPERATOR tt Airam Caba MD LAB - BODY FLUID ORD ERABLES Performing Organization Address [facility] Co de Phone Number [facility] [address] [place] [phone]
[2024-07-17 12:10] VITALS: BP 106/68; PULSE 63; RESP 11; TEMP 36.4; O2SAT 100; O2SAT 98
[2024-07-17 12:39] LABS: Troponin I < 0.012 ng/mL (0.000-0.034)
[2024-07-17 12:57] LABS: Influenza A QL RT-PCR Negative (Negative); Influenza B QL RT-PCR Negative (Negative); RSV RNA, RT-PCR Negative (Negative); SARS-CoV-2 RNA PCR Negative (Negative)
[2024-07-17 13:57] VITALS: BP 113/67; PULSE 73; RESP 14; O2SAT 100
[2024-07-17] MEDS: KETOROLAC 30 MG/ML VIAL (*BKC) IV PUSH (14:31)
[2024-07-17 14:45] VITALS: BP 107/73; PULSE 62; RESP 14; TEMP 36.6; O2SAT 100
== END 2024-07-17 14:46 | disposition home or self-care (01) ==
PROVIDERS: Emergency Provider Emergency Medicine; PCP Nurse Practitioner Family
DX: R07.9 Chest pain, unspecified (principal); Z20.822 Contact with and (suspected) exposure to COVID-19; H40.9 Unspecified glaucoma
CPT/HCPCS: 36415; 71046; 71275; 80053; 83690; 84484; 85025; 85610; 85730; 87637; 93005; 96374; 99284; J1885; Q9967

== ENCOUNTER 2024-07-21 09:18 | Emergency (ER) | payer OTHER, SELFPAY ==
--- NOTE | ~2024-07-21 | XR_ITS ---
EXAMINATION: XR chest 2V DATE: 07/21/2024 10:00 INDICATION: Chest pain and shortness of breath TECHNIQUE: PA and lateral views of the chest were obtained. COMPARISON: Chest radiograph head CT dated 07/17/2024 FINDINGS: The lungs are clear with no focal airspace opacities, pulmonary edema, pleural effusion or pneumothor ax. The cardiomediastinal silhouette is normal. Visualized bones and soft tissues are unremarkable. IMPRESSION: 1. Normal chest radiograph. Reviewed, dictated and finalized at location A. O EXPERIENCE EXPERT IMPRESSION: 1. Normal chest radiograph.
--- NOTE | ~2024-07-21 | XR_ITS ---
EXAMINATION: XR ribs LT 2V DATE: 07/21/2024 10:00 INDICATION: Left chest pain. TECHNIQUE: 2 views of the left ribs on 3 radiographs were obtained. COMPARISON: Chest 2 views 07/17/2024 FINDINGS: There is no left-sided pneumonia, pleural effusion, or pneumothorax. The heart size is norm al. There is no rib fracture. There are surgical clips overlying the abdomen. IMPRESSION: 1. No rib fracture. Reviewed, dictated and finalized at location A. ITAL UNIT CLERK IMPRESSION: 1. No rib fracture.
--- NOTE | 2024-07-21 09:21 | ECG_ITS ---
Test Date: 2024-07-21 09:24:43 Measurements Intervals [place] Rate: 65 P: 57 NH: 130 QRS: 70 QRSD: 86 T: 57 QT: 400 QTc: 417 Interpretive Statements SINUS RHYTHM BASELINE ARTIFACT- I, III, AVR, AVL, AVF NORMAL ECG Compared to ECG 07/17/2024 12:04:06 T-wave abnormality now present Sinus bradycardia no longer present Electronically Signed On 07-21-2024 10:00:15 INTERNET DATABASE SPECIALIST by Vivek Saavedra D.O.
[2024-07-21 09:23] VITALS: BP 132/80; PULSE 82; RESP 16; TEMP 36.6; O2SAT 100
[2024-07-21 09:35] VITALS: BP 115/71; PULSE 66; RESP 18; TEMP 36.7; O2SAT 100
[2024-07-21 09:47] LABS: Basophils Percent Auto 0.5 % (0.2-1.2); Eosinophils Percent Auto 1.1 % (0-4.4); Hematocrit 38.9 % (37.0-47.0); Hemoglobin 12.9 g/dL (12.0-15.0); Immature Granulocyte Absolute 0.01 K/mm3 (0.00-0.031); Immature Granulocyte Percent A 0.3 % (0-0.5); Lymphocytes Absolute Auto 1.59 K/mm3 (0.9-3.2); Lymphocytes Percent Auto 42.2 % (18.3-44.2); Mean Corpuscular HGB Conc 33.2 g/dl (32-36); Mean Corpuscular Hemoglobin 30.4 pg (26-34); Mean Corpuscular Volume 91.7 fl (80-100); Monocytes Absolute Auto 0.2 K/mm3 (0.1-0.6); Monocytes Percent Auto 6.4 % (2.6-8.5); Neutrophils Absolute Auto 1.9 K/mm3 (1.3-6.7); Neutrophils Percent Auto 49.5 % (45.5-73.1); Platelet Count Result 215 k/mm3 (150-375); Red Blood Count 4.24 M/mm3 (4.2-5.4); White Blood Count 3.8 K/mm3 (4.5-10.0)
[2024-07-21 09:54] LABS: Alanine Aminotransferase 16 U/L (6-35); Albumin Level 4.4 g/dL (3.5-5.1); Alkaline Phosphatase 64 U/L (38-126); Anion Gap 11 mmol/L (4-12); Aspartate Amino Transferase 28 U/L (14-36); Bilirubin,Total 0.3 mg/dL (0.2-1.3); Blood Urea Nitrogen 10 mg/dL (7-17); Calcium 9.3 mg/dL (8.4-10.2); Carbon Dioxide 24 mmol/L (22-30); Chloride 104 mmol/L (98-107); Estimated Glomerular Filt Rate > 60; Glucose 80 mg/dL (65-110); Lipase 99 U/L (23-300); Potassium 3.6 mmol/L (3.4-5.0); Sodium 139 mmol/L (137-145)
[2024-07-21 09:55] LABS: Prothrombin Time 13.6 Seconds (11.1-14.7)
[2024-07-21 09:56] LABS: Partial Thromboplastin Time 28.7 Seconds (22.3-36.8)
--- OUTSIDE RECORDS SUMMARY | 2024-07-21 10:00 | XMS_ITS | Clinical Summary ---
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
--- OUTSIDE RECORDS SUMMARY | 2024-07-21 10:00 | XMS_ITS | Clinical Summary ---
Author Organization [facility] Care Team Providers Care Warehouse Administrative Assistant Name Role Phone Unavailable Primary Care Provider [...]
--- OUTSIDE RECORDS SUMMARY | 2024-07-21 10:00 | XMS_ITS | Clinical Summary ---
Author Organization [facility] Address [address] [place] [address] Phone Care Team Providers Care Brushing Machine Operator Name Role Phone Unavailable Primary Care Provider [...] Department Care Team Description 07/03/2024 2:30 PM GRAPHICS SOFTWARE ENGINEER Office Visit [facility] AUTOCAD TECHNICIAN - [address] [place] [address] Meng Tran, Menorrhagia with regular cycle (Primary Dx); Intramural leiomyoma of uterus 07/03/2024 10:30 AM GRAPHICS SOFTWARE ENGINEER Ancillary Procedure [facility] AUTOCAD TECHNICIAN - [address] [address] Menorrhagia with regular cycle 07/02/2024 External Device Data ST[place] ABSTRACTION Provider, Abstract 07/01/2024 External Device Data [place] ABSTRACTION Provider, Abstract 06/30/2024 External Device Data [place] ABSTRACTION Provider, Abstract 06/24/2024 External Device Data [place] ABSTRACTION Provider, Abstract 06/23/2024 External Device Data ST[place] ABSTRACTION Provider, Abstract 06/18/2024 1:30 PM GRAPHICS SOFTWARE ENGINEER Office Visit [facility] [address] [place] [address] Meng Tran DO Well woman exam with routine gynecological exam (Primary Dx); Screening for STDs (sexually transmitted diseases); Menorrhagia with regular cycle 06/18/2024 Telephone [facility] AUTOCAD TECHNICIAN - [address] [address] Meng Tran DO Appointment Notification [...] Comments Blood Pressure 106/72 07/03/2024 10:42 AM GRAPHICS SOFTWARE ENGINEER Pulse 67 08/04/2021 8:00 AM GRAPHICS SOFTWARE ENGINEER Temperature 36.7 C (98 F) 08/04/2021 8:00 AM GRAPHICS SOFTWARE ENGINEER Respiratory Rate 15 07/03/2024 10:42 AM GRAPHICS SOFTWARE ENGINEER Oxygen Saturation 99% 07/03/2024 10:42 AM GRAPHICS SOFTWARE ENGINEER Inhaled Oxygen Concentration - - Weight 88 kg (194 lb) 07/03/2024 10:42 AM GRAPHICS SOFTWARE ENGINEER Height 175.3 cm (5' 9 ) 07/03/2024 10:42 AM GRAPHICS SOFTWARE ENGINEER Body Mass Index 28.65 07/03/2024 10:42 AM GRAPHICS SOFTWARE ENGINEER Plan of Treatment Upcoming Encounters Date Type Department Care Team (Late st Contact Info) Description 06/24/2025 1:30 PM GRAPHICS SOFTWARE ENGINEER Office Visit [facility] [address] [place] [address] Meng Tran DO [address] [place] [address] Health Maintenance Due Date Last Done Comments Pre-Diabetes and Diabetes Screening 1985 DTAP/TDAP/TD VACCINES (1 - Tdap) 2004 HEPATITIS B VACCINES (1 of 3 - 19+ 3-dose series) 2004 INFLUENZA VACCINE (#1) 2024 CERVICAL CANCER SCREENING 06/18/2027 06/18/2024 HPV VACCINES Aged Out No longer eligi ble based on patient's age to complete this topic Medical Devices Implanted Type Area Investigator Operator Device Identifier Shelf Expiration Date Model / Serial / Lot Head Counselor Clip Surgiclip Lb 13in [id number] - [id number] Implanted:Qty : 4 on 08/03/2021 by Alena Benjamin MD at [facility] N/A: Abdomen [employer] - COVIDIEN [id number] 04/09/2026 [id number] / / [id number] Procedures Procedure Name Priority Date/Time Associated Diagnosis Comments HIV DETECTION W/REFLX CONFIRMATION Routine 06/18/2024 2:44 PM GRAPHICS SOFTWARE ENGINEER Well woman exam with routine gynecological exam Screening for STDs (sexually transmitted diseases) RPR Routine 06/18/2024 2:44 PM GRAPHICS SOFTWARE ENGINEER Well woman exam with routine gynecological exam Screening for STDs (sexually transmitted diseases) CERV/VAG CYTO AGE BASED SCREEN PAP W CT/NG, TRICH Routine 06/18/2024 2:44 PM GRAPHICS SOFTWARE ENGINEER Well woman exam with routine gynecological exam from Last 3 Months Results * CERV/VAG CYTO AGE BASED SCREEN PAP W CT/NG, TRICH (06/18/2024 2:44 PM GRAPHICS SOFTWARE ENGINEER) COMMENT (PAP): [facility] Comment: This order for age-based cervical cancer and STI screening follows ACOG guidelines(PB 168, 140, HGQ626). See individual assays for performing site location. CLINICAL INFORMATION [facility] Comment:SCREENING LAST MENSTRUAL PERIOD [facility] Comment:06/02/2024 PREV PAP: [facility] Comment:NONE GIVEN PREV BX: [facility] Comment:NONE GIVEN SOURCE [facility] Comment:Endocervix ADEQUACY: [facility] Comment: Satisfactory for evaluation. Endocervical/transformation zone component present. PAP INTERP [facility] Comment: Cytology Results: Negative for intraepithelial lesion or malignancy. CYTOLOGY INFECTION [facility] Comment: Fungal organisms morphologically consistent with Tracey spp. COMMENT (PAP TEST) [facility] Comment: This Pap test has been evaluated with computer assisted technology. CONVENTIONS RESERVATIONIST: [facility] [place] Comment: TANIA, CT(ASCP) CT screening location: [place] [address] [place] [address] EXPLANATORY NOTE [facility] Comment: EXPLANATORY NOTE: The Pap is a [...] information. HPV E6/E7 Not Detected Not Detected [facility] Comment: Methodology: Makeup Sales Consultant-Mediated Amplification This assay detects E6/E7 viral messenger RNA (mRNA) from 14 high-risk HPV types (16,18,31,33,35,39,45,51,52,56,58,59,66,68). Cervical sources are required for HPV testing. If a vaginal source from a patient who has had a total hysterectomy with removal of cervix was submitted, please contact the testing laboratory for alternative testing options. For additional information, please refer to http://LocalCircles.Splash/faq/HVC986d9 (This link if provided for information/ educational purposes only.) CHLAMYDIA TRACHOMATIS RNA, TMA, UROGENITAL NOT DETECTED NOT DETECTED [facility] NEISSERIA GONORRHOEAE RNA, TMA, UROGENITAL NOT DETECTED NOT DETECTED [facility] COMMENT INFECTIOUS DISEASE [facility] Comment: The analytical performance characteristics of this assay, when used to test SurePath(TM) specimens have been determined by [facility]. The modifications have not been cleared or approved by the FDA. This assay has been validated pursuant to the CLIA regulations and is used for clinical purposes. For additional information, please refer to https://LocalCircles.Splash/faq/YNV923 (This link is being provided for information/ educational purposes only.) TRICHOMONAS VAGINALIS,QUALITAT DELGADO,PAP VIAL NOT DETECTED NOT DETECTED [facility] Comment: The analytical performance characteristics of this assay have been determined by [facility]. The modifications have not been cleared or approved by the FDA. This assay has been validated pursuant to the CLIA regulations and is used for clinical purposes. For additional information, please refer to http://education.Splash/ faq/Trichomonastma (This link is being provided for information/ educational purposes only.) Test Performed at: [facility] [address] [place] [address] Gayatri CASTANO Genital SWAB OF ENDOCERVIX / Unknown 06/18/2024 2:44 PM GRAPHICS SOFTWARE ENGINEER 06/19/2024 3:26 AM GRAPHICS SOFTWARE ENGINEER Meng Tran DO PATHOLOGY/CYTOLOGY ORD ERABLES Final Result [facility] [phone] [facility] [address] * HIV DETECTION W/REFLX CONFIRMATION (06/18/2024 2:44 PM GRAPHICS SOFTWARE ENGINEER) HIV-1/2 AG AND AB SCREEN NON-REACT DELGADO NON-REACT DELGADO [facility] Comment: HIV-1 antigen and HIV-1/HIV-2 antibodies were [...] purpose. For additional information please refer to http://education.Splash/faq/ZFB121 (This link is being provided for informational/ educational purposes only.) The performance of this assay has not been clinically validated in patients less than 2 years old. Test Performed at: [email or web address] [address] [place] [address] Gayatri Weller MD Blood 06/18/2024 2:44 PM GRAPHICS SOFTWARE ENGINEER 06/19/2024 7:41 AM GRAPHICS SOFTWARE ENGINEER Meng Tran DO CHEMISTRY ORDERABLES F inal Result Performing Organization Address [facility] Co de Phone Number [facility] [phone] [facility] [address] * RPR (06/18/2024 2:44 PM GRAPHICS SOFTWARE ENGINEER) RPR NON-REACTI VE NON-REACTI VE [facility] Comment: No laboratory evidence of syphilis. If recent exposure is suspected, submit a new sample in 2-4 weeks. Test Performed at: [email or web address] [address] Gayatri Weller MD Blood 06/18/2024 2:44 PM GRAPHICS SOFTWARE ENGINEER 06/19/2024 7:41 AM GRAPHICS SOFTWARE ENGINEER Meng Gallegoty DO CHEMISTRY ORDERABLES F inal Result Performing Organization Address [facility] de Phone Number [facility] [phone] [facility] [address] from Last 3 Months Insurance [employer] [facility] MALENA KISER [address] Advance Directives For more information, please contact: [phone] * Full Code (Latest Code Status on File) Date Activated Date Inactivated Comments 08/03/2021 2:30 PM 08/04/2021 1:01 PM
--- OUTSIDE RECORDS SUMMARY | 2024-07-21 10:00 | XMS_ITS | Referral Summary ---
Author Organization [facility] at the Medical Office Building Address [address] [place] [address] Care Team Providers Care Meat Stocker Name Role Phone Joshua Iqbal MD Primary Care Provider +1- [phone] Allergies No known active allergies Medications No [...] on file Legal Sex Female 8:10 AM GRIZZLYMAN Gender Identity Not on file Sexual Orientation [...] Plan of Treatment Not on file Insurance [facility] Care Teams Meat Stocker Relationship Specialty Start Date End Date Joshua Iqbal MD [address] [place] [address] PCP - General Family Practice 08/19/19
--- OUTSIDE RECORDS SUMMARY | 2024-07-21 10:00 | XMS_ITS | Referral Summary ---
Author Organization [facility] Address [address] [place] [address] Care Team Providers Care Assistance Representative Name Role Phone Unavailable Primary Care Provider Unavailabl e Source Comments [facility],non-owned Affiliates and Associated Physician Practices is amultiple site organization consisting of ambulatory clinics and hospital sitesin [place], [place], [place] and [place]. This disclosure is being madepursuant to the Care Everywhere program and may not contain all information available regarding this patient. Last updated 18.[facility] Threat Stack Social History Tobacco Use Types Packs/Day Years Used Date Smoking Tobacco: Never Assessed Sex and Gender Information Value Date Recorded Sex Assigned at Not on file Gender Identity Not on file Sexual Orientation Not on file Plan of Treatment Not on file
--- OUTSIDE RECORDS SUMMARY | 2024-07-21 10:00 | XMS_ITS | Clinical Summary ---
Author Organization [facility] Address [address] [place] [address] Care Team Providers Care Occupational Health Technician Name Role Phone Unavailable Primary Care Provider Unavailabl e Source Comments [facility],non-owned Affiliates and Associated Physician Practices is amultiple site organization consisting of ambulatory clinics and hospital sitesin [place], [place], [place] and [place]. This disclosure is being madepursuant to the Care Everywhere program and may not contain all information available regarding this patient. Last updated 18.[facility] Social History Tobacco Use Types Packs/Day Years [...]
--- OUTSIDE RECORDS SUMMARY | 2024-07-21 10:00 | XMS_ITS | Patient Health Summary ---
Author Organization [facility] Address [address] [place] [address] Care Team Providers Care Customer Logistics Manager Name Role Phone Unavailable Primary Care Provider Unavailabl e Note from [facility],non-owned Affiliates and Associated Physician Practices is amultiple site organization consisting of ambulatory clinics and hospital sitesin [place], [place], [place] and [place]. This disclosure is being madepursuant to the Care Everywhere program and may not contain all information available regarding this patient. Last updated 18.[facility] [employer] Social History Tobacco Use Types Packs/Day Years Used Date Smoking Tobacco: Never Assessed Sex and Gender Information Value Date Recorded Sex Assigned at Not on file Gender Identity Not on file Sexual Orientation Not on file Procedures * LUNG MATURITY(Performed 06/23/2010) * LS RATIO AMNIOTIC FLUID(Performed 06/23/2010) Results * LS RATIO FLUID (06/23/2010 7:45 AM SYSTEM ADMINISTRATION ADVISOR) L/S Ratio 3.0 SEE BELOW [facility] Comment: Immature <=1.5 Transitional 1.6-1.9 Mature >=2.0 Color Fluid Pale Yellow [facility] Character Amnio turbid [facility] Gestational Age 37w4d [facility] Volume Amnio 9.0 ml [facility] Interpretation L/S Ratio [facility] Comment: PLEASE NOTE - L/S Ratio [...] FLUID SPECIMEN / Unknown 06/23/2010 7:45 AM SYSTEM ADMINISTRATION ADVISOR 06/23/2010 10:18 AM SYSTEM ADMINISTRATION ADVISOR Narrative [facility] - 06/23/2010 2:28 PM SYSTEM ADMINISTRATION ADVISOR tt Airam Caba MD LAB - BODY FLUID ORD ERABLES Performing Organization Address [facility] [[email or web address]] de Phone Number [facility] [address] [place] [phone] * LUNG MATURITY (06/23/2010 7:45 AM SYSTEM ADMINISTRATION ADVISOR) FLM 35.63 SEE BELOW mg/g [facility] Comment: See Interpretation for Normals Color Fluid Pale Yellow [facility] Character Amnio turbid [facility] Gestational Age 37w4d [facility] Volume Amnio 9.0 ml [facility] Interpretation [facility] Comment: FLM Immature ......... <= 39 mg/g Mature ......... >= 55 mg/g Results between 40 and 54 cannot be declared mature or immature and should be evaluated with caution. AMNIOTIC FLUID SPECIMEN / Unknown 06/23/2010 7:45 AM SYSTEM ADMINISTRATION ADVISOR 06/23/2010 10:18 AM SYSTEM ADMINISTRATION ADVISOR Narrative [facility] - 06/23/2010 2:27 PM SYSTEM ADMINISTRATION ADVISOR tt Airam Caba MD LAB - BODY FLUID ORD ERABLES Performing Organization Address [facility] Co de Phone Number [facility] [address] [place] [phone]
[2024-07-21 10:05] LABS: Troponin I < 0.012 ng/mL (0.000-0.034)
[2024-07-21 10:37] VITALS: BP 115/80; PULSE 68; RESP 18; O2SAT 100
--- NOTE | 2024-07-21 10:56 | ED_ITS ---
HPI - Chest Pain General Chief Complaint: Chest Pain Stated Complaint: chest pain Time Seen by Provider: 07/21/24 10:35 History of Present Illness HPI narrative: Patient having L sided chest pain for last few days with difficulty breathing. Here recently for the same thing. Related Data Home Medications ?Medication ?Instructions ?Recorded ?Confirmed ?Last Taken ?Type No Home Medications 07/21/24 07/21/24 Unknown History Allergies Allergy/AdvReac Type Severity Reaction Status Date / Time No Known Allergies Allergy Unknown Verified 07/21/24 09:19 Review of Systems 2 Review of Systems: All systems reviewed & are unremarkable except as noted in HPI and below PMFSH Past Medical History Medical History Depression Glaucoma Vision loss, bilateral Detached retina, bilateral Surgical History Surgical History History of removal of eye Right History of endometrial ablation Family History Family History Grandparent Diabetes mellitus Family history of lung cancer Father Family history of malignant neoplasm Social History Social History Smoking status: Never smoker Alcohol intake: current Substance use: never Substance use type: does not use Lack of Transportation: No Lack of Food: Never True Current Housing: I Have Housing Concerned About Future Housing: No Difficulty Paying Gas/Electric Bills: YES Difficulty Paying for Meds: No Currently Unemployed: No Education: Bachelor's Degree Difficulty w/ Childcare or Family Care: No Living arrangements: with family Occupation/Education: unemployed Additional occupation/education comments: Disabled Gender identity (if verbalized by the patient): Female Sexual Orientation (if Verbalized by the Patient): Straight or Heterosexual Agree to blood products: Yes Exam 2 Narrative: EXAMINATION OF ORGAN SYSTEMS/BODY AREAS: Constitutional: Vital signs per nursing GENERAL: Slightly tearful and anxious HEAD: Normal with no signs of head trauma. EYES: EOMI, conjunctiva normal ENT: Hearing grossly intact LUNGS: Clear to auscultation bilaterally HEART: [Regular rate and rhythm] ABD: [Soft], [nontender to palpation] EXT: Normal range of motion, no lower extremity edema SKIN: [No rashes or lesions.] NEURO: [Alert and oriented x 3. No gross focal sensory or strength deficits.] PSYCH: Normal affect Course Vital Signs Vital signs: Vital Signs Temperature 97.9 F 07/21/24 09:23 Pulse Rate 82 07/21/24 09:23 Respiratory Rate 16 07/21/24 09:23 Blood Pressure 132/80 07/21/24 09:23 Pulse Oximetry 100 07/21/24 09:23 Oxygen Delivery Room Air 07/21/24 09:23 Temperature 98.0 F 07/21/24 09:35 Pulse Rate 83 07/21/24 11:00 Respiratory Rate 15 07/21/24 11:00 Blood Pressure 145/78 H 07/21/24 11:00 Pulse Oximetry 100 07/21/24 11:00 Oxygen Delivery Room Air 07/21/24 09:23 MDM - Chest Pain MDM Narrative Medical decision making narrative: Patient presenting here with chest pain and difficulty breathing. On exam patient is [slightly hyperventilating and is quite tearful and anxious]. I will obtain EKG and chest xray to rule out arrhythmia/ischemia, pneumothorax, or other cause of chest discomfort/shortness of breath. Chest x-ray on my independent interpretation does not show any acute abnormality, no pneumothorax or consolidation. EKG - 12-Lead: Performed at 0924. Interpreted by me. [Sinus rhythm]. Rate 65. [Normal] axis. VA-interval [normal]. QRS duration [normal]. QTc [normal]. [No ST segment elevation or depression]. [T-wave normal]. Impression: No EKG evidence of acute ischemia or dysrhythmia. Labs including troponin negative. Patient is PERC negative and I did see that she already had a CTA pulmonary embolism done several days ago that was negative, patient still insisted that there must be something going that was missed. Has only had reassure the patient that we have done will be could in the emergency room to rule out anything dangerous, but that she may need a follow-up with a specialist. Patient agree with this plan. Return precautions discussed. Heart score 0 Agreeable to outpatient management. Lab Data 07/21/24 09:33 07/21/24 09:33 Labs: Lab Results 07/21/24 07/21/24 Range/Units 09:33 09:33 WBC 3.8 L (4.5-10.0) K/mm3 RBC 4.24 (4.2-5.4) M/mm3 Hgb 12.9 (12.0-15.0) g/dL Hct 38.9 (37.0-47.0) % MCV 91.7 (80-100) fl MCH 30.4 (26-34) pg MCHC 33.2 (32-36) g/dl RDW 13.0 (11.5-14.5) % Plt Count 215 (150-375) k/mm3 MPV 11.0 H (7.4-10.4) fl Immature Gran % (Auto) 0.3 (0-0.5) % Neut % (Auto) 49.5 (45.5-73.1) % Lymph % (Auto) 42.2 (18.3-44.2) % [place] % (Auto) 6.4 (2.6-8.5) % Eos % (Auto) 1.1 (0-4.4) % Baso % (Auto) 0.5 (0.2-1.2) % Lymph # (Auto) 1.59 (0.9-3.2) K/mm3 [place] # (Auto) 0.2 (0.1-0.6) K/mm3 Eos # (Auto) 0.0 (0-0.3) K/mm3 Baso # (Auto) 0.0 (0.0-0.1) K/mm3 Abs Immat Gran (auto) 0.01 (0.00-0.031) K/mm3 Absolute Neuts (auto) 1.9 (1.3-6.7) K/mm3 Absolute Nucleated RBC 0.000 (0.0-0.012) K/mm3 Nucleated RBC % 0.0 (0.0-0.2) % PT 13.6 (11.1-14.7) Seconds INR 1.0 APTT 28.7 (22.3-36.8) Seconds D-Dimer Cancelled Sodium 139 (137-145) mmol/L Potassium 3.6 (3.4-5.0) mmol/L Chloride 104 (98-107) mmol/L Carbon Dioxide 24 (22-30) mmol/L Anion Gap 11 (4-12) mmol/L BUN 10 (7-17) mg/dL Creatinine 0.66 L (0.7-1.0) mg/dL Estim Creat Clear Calc Not Reportable Estimated GFR > 60 (59 - ) Glucose 80 (65-110) mg/dL Calcium 9.3 (8.4-10.2) mg/dL Total Bilirubin 0.3 (0.2-1.3) mg/dL AST 28 (14-36) U/L ALT 16 (6-35) U/L Alkaline Phosphatase 64 (38-126) U/L Troponin I < 0.012 Cancelled (0.000-0.034) ng/mL Total Protein 8.0 (6.3-8.2) g/dL Albumin 4.4 (3.5-5.1) g/dL Lipase 99 (23-300) U/L Discharge Plan Discharge Clinical Impression: Atypical chest pain Patient Disposition: Home, Self-Care Condition: Stable Instructions: Chest Wall Pain (ED) Additional Instructions: Please follow-up with the lung specialist. If you have persistent symptoms or things get worse you can always return to the emergency room. Patient Language: Tunisian Prescriptions: No Action No Home Medications Follow-up/Referrals: Sayra Moya NP [Primary Care Provider] - Anil Goodwin MD [Physician] - 2 Days
[2024-07-21 11:00] VITALS: BP 145/78; PULSE 83; RESP 15; O2SAT 100
[2024-07-21] MEDS: KETOROLAC 30 MG/ML VIAL (*BKC) IM (11:16)
[2024-07-21 11:27] VITALS: BP 145/78; PULSE 71; RESP 18; TEMP 36.4; O2SAT 100
--- OUTSIDE RECORDS SUMMARY | 2024-07-21 11:56 | XMS_ITS | Patient Health Summary ---
Author Organization [facility] Address [address] [place] [address] Care Team Providers Care Steel Fixer Name Role Phone Unavailable Primary Care Provider Unavailabl e Note from [facility],non-owned Affiliates and Associated Physician Practices is amultiple site organization consisting of ambulatory clinics and hospital sitesin [place], [place], [place] and [place]. This disclosure is being madepursuant to the Care Everywhere program and may not contain all information available regarding this patient. Last updated 18.[facility] [employer] Social History Tobacco Use Types Packs/Day Years Used Date Smoking Tobacco: Never Assessed Sex and Gender Information Value Date Recorded Sex Assigned at Not on file Gender Identity Not on file Sexual Orientation Not on file Procedures * LUNG MATURITY(Performed 06/23/2010) * LS RATIO AMNIOTIC FLUID(Performed 06/23/2010) Results * LS RATIO FLUID (06/23/2010 7:45 AM EXCAVATING MACHINE OPERATOR) L/S Ratio 3.0 SEE BELOW [facility] Comment: Immature <=1.5 Transitional 1.6-1.9 Mature >=2.0 Color Fluid Pale Yellow [facility] Character Amnio turbid [facility] Gestational Age 37w4d [facility] Volume Amnio 9.0 ml [facility] Interpretation L/S Ratio [facility] Comment: PLEASE NOTE - L/S Ratio [...] FLUID SPECIMEN / Unknown 06/23/2010 7:45 AM EXCAVATING MACHINE OPERATOR 06/23/2010 10:18 AM EXCAVATING MACHINE OPERATOR Narrative [facility] - 06/23/2010 2:28 PM EXCAVATING MACHINE OPERATOR tt Airam Caba MD LAB - BODY FLUID ORD ERABLES Performing Organization Address [facility] de Phone Number [facility] [address] [place] [phone] * LUNG MATURITY (06/23/2010 7:45 AM EXCAVATING MACHINE OPERATOR) FLM 35.63 SEE BELOW mg/g [facility] Comment: See Interpretation for Normals Color Fluid Pale Yellow [facility] Character Amnio turbid [facility] Gestational Age 37w4d [facility] Volume Amnio 9.0 ml [facility] Interpretation [facility] Comment: FLM Immature ......... <= 39 mg/g Mature ......... >= 55 mg/g Results between 40 and 54 cannot be declared mature or immature and should be evaluated with caution. AMNIOTIC FLUID SPECIMEN / Unknown 06/23/2010 7:45 AM EXCAVATING MACHINE OPERATOR 06/23/2010 10:18 AM EXCAVATING MACHINE OPERATOR Narrative [facility] - 06/23/2010 2:27 PM EXCAVATING MACHINE OPERATOR tt Airam Caba MD LAB - BODY FLUID ORD ERABLES Performing Organization Address [facility] Co de Phone Number [facility] [address] [place] [phone]
--- OUTSIDE RECORDS SUMMARY | 2024-07-21 11:56 | XMS_ITS | Referral Summary ---
Author Organization [facility] at the Medical Office Building Address [address] [place] [address] Care Team Providers Care Artificial Snow Making Machine Operator Name Role Phone Joshua Iqbal MD Primary Care Provider +1- [phone] Allergies No known active allergies Medications No [...] on file Legal Sex Female 8:10 AM POLITICAL RESEARCHER Gender Identity Not on file Sexual Orientation [...] Plan of Treatment Not on file Insurance [facility] Care Teams Artificial Snow Making Machine Operator Relationship Specialty Start Date End Date Joshua Iqbal MD [address] [place] [address] PCP - General Family Practice 08/19/19
--- OUTSIDE RECORDS SUMMARY | 2024-07-21 11:56 | XMS_ITS | Clinical Summary ---
Author Organization [facility] Address [address] [place] [address] Phone Care Team Providers Care Telephone Quotation Clerk Name Role Phone Unavailable Primary Care Provider [...] Department Care Team Description 07/03/2024 2:30 PM RESEARCH AND DEVELOPMENT RESEARCHER Office Visit [facility] CAREER DEVELOPMENT ENGINEER - [id number] [place] [address] Meng Tran, Menorrhagia with regular cycle (Primary Dx); Intramural leiomyoma of uterus 07/03/2024 10:30 AM RESEARCH AND DEVELOPMENT RESEARCHER Ancillary Procedure [facility] CAREER DEVELOPMENT ENGINEER - [id number] [address] Menorrhagia with regular cycle 07/02/2024 External Device Data [facility] ABSTRACTION Provider, Abstract 07/01/2024 External Device Data [facility] ABSTRACTION Provider, Abstract 06/30/2024 External Device Data [facility] ABSTRACTION Provider, Abstract 06/24/2024 External Device Data [facility] ABSTRACTION Provider, Abstract 06/23/2024 External Device Data [facility] ABSTRACTION Provider, Abstract 06/18/2024 1:30 PM RESEARCH AND DEVELOPMENT RESEARCHER Office Visit [facility] [address] [place] [address] Meng Tran DO Well woman exam with routine gynecological exam (Primary Dx); Screening for STDs (sexually transmitted diseases); Menorrhagia with regular cycle 06/18/2024 Telephone [facility] CAREER DEVELOPMENT ENGINEER - [address] [address] Meng Tran DO Appointment Notification [...] Comments Blood Pressure 106/72 07/03/2024 10:42 AM RESEARCH AND DEVELOPMENT RESEARCHER Pulse 67 08/04/2021 8:00 AM RESEARCH AND DEVELOPMENT RESEARCHER Temperature 36.7 C (98 F) 08/04/2021 8:00 AM RESEARCH AND DEVELOPMENT RESEARCHER Respiratory Rate 15 07/03/2024 10:42 AM RESEARCH AND DEVELOPMENT RESEARCHER Oxygen Saturation 99% 07/03/2024 10:42 AM RESEARCH AND DEVELOPMENT RESEARCHER Inhaled Oxygen Concentration - - Weight 88 kg (194 lb) 07/03/2024 10:42 AM RESEARCH AND DEVELOPMENT RESEARCHER Height 175.3 cm (5' 9 ) 07/03/2024 10:42 AM RESEARCH AND DEVELOPMENT RESEARCHER Body Mass Index 28.65 07/03/2024 10:42 AM RESEARCH AND DEVELOPMENT RESEARCHER Plan of Treatment Upcoming Encounters Date Type Department Care Team (Late st Contact Info) Description 06/24/2025 1:30 PM RESEARCH AND DEVELOPMENT RESEARCHER Office Visit [facility] [address] [place] [address] Meng Tran DO [address] [place] [address] Health Maintenance Due Date Last Done Comments Pre-Diabetes and Diabetes Screening 1985 DTAP/TDAP/TD VACCINES (1 - Tdap) 2004 HEPATITIS B VACCINES (1 of 3 - 19+ 3-dose series) 2004 INFLUENZA VACCINE (#1) 2024 CERVICAL CANCER SCREENING 06/18/2027 06/18/2024 HPV VACCINES Aged Out No longer eligi ble based on patient's age to complete this topic Medical Devices Implanted Type Area Outpatient Facility Physical Therapist Device Identifier Shelf Expiration Date Model / Serial / Lot Players Assistant Clip Surgiclip Lb 13in [id number] - [id number] Implanted:Qty : 4 on 08/03/2021 by Alena Benjamin MD at [facility] N/A: Abdomen [employer] - COVIDIEN [id number] 04/09/2026 [id number] / / [id number] Procedures Procedure Name Priority Date/Time Associated Diagnosis Comments HIV DETECTION W/REFLX CONFIRMATION Routine 06/18/2024 2:44 PM RESEARCH AND DEVELOPMENT RESEARCHER Well woman exam with routine gynecological exam Screening for STDs (sexually transmitted diseases) RPR Routine 06/18/2024 2:44 PM RESEARCH AND DEVELOPMENT RESEARCHER Well woman exam with routine gynecological exam Screening for STDs (sexually transmitted diseases) CERV/VAG CYTO AGE BASED SCREEN PAP W CT/NG, TRICH Routine 06/18/2024 2:44 PM RESEARCH AND DEVELOPMENT RESEARCHER Well woman exam with routine gynecological exam from Last 3 Months Results * CERV/VAG CYTO AGE BASED SCREEN PAP W CT/NG, TRICH (06/18/2024 2:44 PM RESEARCH AND DEVELOPMENT RESEARCHER) COMMENT (PAP): [facility] Comment: This order for age-based cervical cancer and STI screening follows ACOG guidelines(PB 168, 140, QJD615). See individual assays for performing site location. CLINICAL INFORMATION [facility] Comment:SCREENING LAST MENSTRUAL PERIOD [facility] Comment:06/02/2024 PREV PAP: [facility] Comment:NONE GIVEN PREV BX: [facility] [place] Comment:NONE GIVEN SOURCE [facility] [place] Comment:Endocervix ADEQUACY: [facility] Comment: Satisfactory for evaluation. Endocervical/transformation zone component present. PAP INTERP [facility] [place] Comment: Cytology Results: Negative for intraepithelial lesion or malignancy. CYTOLOGY INFECTION [facility] [place] Comment: Fungal organisms morphologically consistent with Tracey spp. COMMENT (PAP TEST) [facility] [place] Comment: This Pap test has been evaluated with computer assisted technology. INTERIOR DESIGN COORDINATOR: [facility] [place] Comment: TANIA, CT(ASCP) CT screening location: [place] [address] [place] [address] EXPLANATORY NOTE Que [facility] [place] Comment: EXPLANATORY NOTE: The Pap is a [...] information. HPV E6/E7 Not Detected Not Detected [facility] [place] Comment: Methodology: Senior Relationship Manager-Mediated Amplification This assay detects E6/E7 viral messenger RNA (mRNA) from 14 high-risk HPV types (16,18,31,33,35,39,45,51,52,56,58,59,66,68). Cervical sources are required for HPV testing. If a vaginal source from a patient who has had a total hysterectomy with removal of cervix was submitted, please contact the testing laboratory for alternative testing options. For additional information, please refer to http://AdRoll.[employer]/faq/WZR491q6 (This link if provided for information/ educational purposes only.) CHLAMYDIA TRACHOMATIS RNA, TMA, UROGENITAL NOT DETECTED NOT DETECTED [facility] [place] NEISSERIA GONORRHOEAE RNA, TMA, UROGENITAL NOT DETECTED NOT DETECTED [facility] [place] COMMENT INFECTIOUS DISEASE [facility] [place] Comment: The analytical performance characteristics of this assay, when used to test SurePath(TM) specimens have been determined by [facility]. The modifications have not been cleared or approved by the FDA. This assay has been validated pursuant to the CLIA regulations and is used for clinical purposes. For additional information, please refer to https://AdRoll.[employer]/faq/YAM866 (This link is being provided for information/ educational purposes only.) TRICHOMONAS VAGINALIS,QUALITAT DELGADO,PAP VIAL NOT DETECTED NOT DETECTED [facility] [place] Comment: The analytical performance characteristics of this assay have been determined by [facility]. The modifications have not been cleared or approved by the FDA. This assay has been validated pursuant to the CLIA regulations and is used for clinical purposes. For additional information, please refer to http://education.Novav[employer]/ faq/Trichomonastma (This link is being provided for information/ educational purposes only.) Test Performed at: [facility] [address] [place] [address] Gayatri CASTANO Genital SWAB OF ENDOCERVIX / Unknown 06/18/2024 2:44 PM RESEARCH AND DEVELOPMENT RESEARCHER 06/19/2024 3:26 AM RESEARCH AND DEVELOPMENT RESEARCHER Meng Tran DO PATHOLOGY/CYTOLOGY ORD ERABLES Final Result [facility] [phone] [facility] [address] * HIV DETECTION W/REFLX CONFIRMATION (06/18/2024 2:44 PM RESEARCH AND DEVELOPMENT RESEARCHER) HIV-1/2 AG AND AB SCREEN NON-REACT DELGADO NON-REACT DELGADO [facility] [employer] [facility] [place] Comment: HIV-1 antigen and HIV-1/HIV-2 antibodies were [...] purpose. For additional information please refer to http://education.Novav[employer] AB/faq/CFF954 (This link is being provided for informational/ educational purposes only.) The performance of this assay has not been clinically validated in patients less than 2 years old. Test Performed at: [facility] [address] [place] [address] Gayatri Weller MD Blood 06/18/2024 2:44 PM RESEARCH AND DEVELOPMENT RESEARCHER 06/19/2024 7:41 AM RESEARCH AND DEVELOPMENT RESEARCHER Meng Tran DO CHEMISTRY ORDERABLES F inal Result Performing Organization Address [facility] Co de Phone Number [facility] [phone] [facility] [address] * RPR (06/18/2024 2:44 PM RESEARCH AND DEVELOPMENT RESEARCHER) RPR NON-REACTI VE NON-REACTI VE [facility] Comment: No laboratory evidence of syphilis. If recent exposure is suspected, submit a new sample in 2-4 weeks. Test Performed at: [facility] [address] Gayatri Weller MD Blood 06/18/2024 2:44 PM RESEARCH AND DEVELOPMENT RESEARCHER 06/19/2024 7:41 AM RESEARCH AND DEVELOPMENT RESEARCHER Meng Gallegoty DO CHEMISTRY ORDERABLES F inal Result Performing Organization Address [facility] de Phone Number [facility] [phone] [facility] [address] from Last [address] [facility] [place] [id number] Advance Directives For more information, please contact: [phone] * Full Code (Latest Code Status on File) Date Activated Date Inactivated Comments 08/03/2021 2:30 PM 08/04/2021 1:01 PM
--- OUTSIDE RECORDS SUMMARY | 2024-07-21 11:56 | XMS_ITS | Clinical Summary ---
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
--- OUTSIDE RECORDS SUMMARY | 2024-07-21 11:56 | XMS_ITS | Clinical Summary ---
Author Organization [facility] [employer] Address [address] [place] [address] Care Team Providers Care Local Owner Operator Truck Driver Name Role Phone Unavailable Primary Care Provider Unavailabl e Source Comments [facility],non-owned Affiliates and Associated Physician Practices is amultiple site organization consisting of ambulatory clinics and hospital sitesin [place], [place], [place] and [place]. This disclosure is being madepursuant to the Care Everywhere program and may not contain all information available regarding this patient. Last updated 18.[facility] Social History Tobacco Use Types Packs/Day Years [...]
--- OUTSIDE RECORDS SUMMARY | 2024-07-21 11:56 | XMS_ITS | Referral Summary ---
Author Organization [facility] Address [address] [facility] [place] [address] Care Team Providers Care Outside Sales Engineer Name Role Phone Unavailable Primary Care Provider Unavailabl e Source Comments [facility],non-owned Affiliates and Associated Physician Practices is amultiple site organization consisting of ambulatory clinics and hospital sitesin [place], [place], [place] and [place]. This disclosure is being madepursuant to the Care Everywhere program and may not contain all information available regarding this patient. Last updated 18.[facility] [employer] Social History Tobacco Use Types Packs/Day Years Used Date Smoking Tobacco: Never Assessed Sex and Gender Information Value Date Recorded Sex Assigned at Not on file Gender Identity Not on file Sexual Orientation Not on file Plan of Treatment Not on file
--- OUTSIDE RECORDS SUMMARY | 2024-07-21 11:56 | XMS_ITS | Clinical Summary ---
Author Organization [facility] Care Team Providers Care Acid Changer Name Role Phone Unavailable Primary Care Provider [...]
== END 2024-07-21 11:29 | disposition home or self-care (01) ==
PROVIDERS: Emergency Provider Emergency Medicine; PCP Nurse Practitioner Family
DX: R07.89 Other chest pain (principal); F32.A Depression, unspecified; H54.7 Unspecified visual loss
CPT/HCPCS: 36415; 71046; 71100; 80053; 83690; 84484; 85025; 85610; 85730; 93005; 96372; 99284; J1885